=== PATIENT | male | born 1985 | race Caucasian/White ===

== ENCOUNTER 2016-06-06 12:18 | Emergency (ER) | payer OTHER ==
[2016-06-06 13:24] VITALS: RESP 18; TEMP 97.5
--- NOTE | 2016-06-06 13:38 | C.PDOC ---
History Of Present Illness Pt states that he fell 3 weeks ago injuring his left shoulder and left wrist. Time Seen by Provider: 06/06/16 13:31 Chief Complaint (Nursing): Upper Extremity Problem/Injury History Per: Patient Onset/Duration Of Symptoms: Days (about 3 weeks ago) Current Symptoms Are (Timing): Still Present Quality: "Pain" Severity: Moderate Exacerbating Factor(s): Strenuous Use Of Affected Area, Movement Additional History Per: Prior Records Past Medical History Reviewed: Historical Data, Nursing Documentation, Vital Signs Vital Signs: Last Vital Signs Temp 97.5 F L 06/06/16 13:21 Pulse 62 06/06/16 13:21 Resp 18 06/06/16 13:21 BP 116/73 06/06/16 13:21 Pulse Ox 100 06/06/16 15:07 - Medical History PMH: No Chronic Diseases Family History: States: Unknown Family Hx - Social History Hx Alcohol Use: No Hx Substance Use: No - Immunization History Hx Tetanus Toxoid Vaccination: No Hx Influenza Vaccination: No Hx Pneumococcal Vaccination: No Review Of Systems Except As Marked, All Systems Reviewed And Found Negative. Constitutional: Negative for: Fever, Weakness Cardiovascular: Negative for: Chest Pain Respiratory: Negative for: Shortness of Breath Gastrointestinal: Negative for: Vomiting, Abdominal Pain Musculoskeletal: Positive for: Shoulder Pain (left). Negative for: Neck Pain, Back Pain, Leg Pain Skin: Negative for: Rash Neurological: Negative for: Weakness, Numbness, Seizures, Altered Mental Status Physical Exam - Physical Exam Appears: Non-toxic, No Acute Distress Skin: Normal Color, Warm, Dry, No Rash Head: Atraumatic, Normacephalic Eye(s): bilateral: PERRL, EOMI Neck: Normal ROM, No Midline Cervical Tenderness, No Paracervical Tenderness, No Step Off Deformity, Supple Chest: Symmetrical, No Deformity Cardiovascular: Rhythm Regular Respiratory: Normal Breath Sounds, No Accessory Muscle Use Gastrointestinal/Abdominal: Soft, No Tenderness Extremity: Normal ROM, Tenderness (to ulnar aspect of left wrist and superior left shoulder), Capillary Refill (wnl), No Deformity, No Swelling Extremity: Bilateral: Normal Color And Temperature Pulses: Left Radial: Normal Neurological/Psych: Oriented x3, Normal Motor, Normal Sensation ED Course And Treatment O2 Sat by Pulse Oximetry: 100 Pulse Ox Interpretation: Normal - Other Rad Left wrist x-rays X-Ray: Interpreted by Me, Viewed By Me Interpretation: Old fx to scaphoid bone. No acute fx or dislocation. Left shoulder x-rays X-Ray: Interpreted by Me, Viewed By Me Interpretation: No acute fx or dislocation. Progress Note: Pt was placed in cock-up splint to left wrist. Reassessment Condition: Improved Disposition Counseled Patient/Family Regarding: Studies Performed, Diagnosis, Need For Followup, Rx Given - Disposition Referrals: Kashif Spangler III, MD [Staff Provider] - Disposition: HOME/ ROUTINE Disposition Time: 15:11 Condition: STABLE Additional Instructions: Follow up with an orthopedic doctor for further evaluation and treatment. Return to the ER if you develop worsening of symptoms or if you have any other concerns. Prescriptions: Naproxen [Naprosyn] 1 tab PO BID PRN #20 tab PRN Reason: Pain Instructions: Wrist Injury (ED), Shoulder Sprain (ED) - Clinical Impression Clinical Impression: Sprain of left shoulder, Left wrist injury
[2016-06-06] MEDS ORDERED: Naproxen 550 mg Tab PO STA (13:57)
[2016-06-06] MEDS ORDERED: Naproxen 550 mg Tab PO ONE (14:08)
[2016-06-06 15:43] VITALS: BP 118/68; PULSE 64; O2SAT 98
--- NOTE | 2016-06-06 15:43 | RAD ---
PROCEDURE: Left Wrist Radiographs. HISTORY: Pain s/p fall 3 weeks ago COMPARISON: None. FINDINGS: BONES: Bone alignment and mineralization are normal. There is a transverse lucency in the scaphoid waist. JOINTS: The proximal and distal carpal rows are maintained. The joint spaces are normal. No dislocation. SOFT TISSUES: Normal. OTHER FINDINGS: None. IMPRESSION: Acute nondisplaced fracture in the scaphoid waist. No dislocation.
--- NOTE | 2016-06-06 15:44 | RAD ---
PROCEDURE: Radiographs of the Left Shoulder HISTORY: Pain s/p injury 3 weeks ago. COMPARISON: No prior. FINDINGS: BONES: There is no acute fracture or bone destruction. Bone alignment and mineralization are normal the. JOINTS: Normal. Glenohumeral and acromioclavicular joints preserved. SOFT TISSUES: Normal. OTHER FINDINGS: None. IMPRESSION: No acute fracture or dislocation.
== END 2016-06-06 15:45 | disposition home or self-care (01) ==
LOC: C.ER 12:18
DX: S43.402A Unspecified sprain of left shoulder joint, initial encounter (principal); S69.92XA Unspecified injury of left wrist, hand and finger(s), initial encounter; W19.XXXA Unspecified fall, initial encounter; Y93.9 Activity, unspecified; Y92.9 Unspecified place or not applicable